=== PATIENT | male | born 1995 | race Caucasian/White ===

== ENCOUNTER → 2022-08-05 | Outpatient (CLI) | payer OTHER ==
[2022-08-05 18:32] LABS: Follicle Stimulating Hormone 6.9 mIU/mL; Luteinizing Hormone 4.6 mIU/mL; Prolactin 10.1 ng/mL (2.100-17.700)
== END | disposition home or self-care (01) ==
LOC: LABWHC1 09:55
PROVIDERS: ATTEND Urology
DX: E29.1 Testicular hypofunction (principal); N52.9 Male erectile dysfunction, unspecified
CPT/HCPCS: 36415; 83001; 83002; 83036; 84146; 84403; 84443